=== PATIENT | female | born 1985 | race Caucasian/White ===

== ENCOUNTER 2016-10-03 14:16 | Emergency (ER) | payer SELFPAY ==
[~2016-10-03] VITALS: Ht 154.9 cm; Wt 83.5 kg
[~2016-10-03 14:16] MED LIST: BENZONATATE200 M1 PO; CYCLOBENZAPRINE5 M2 PO; GUAIFENESIN-COD10 ML PO; IBUPROFEN800 M1 PO; LEVAQUIN750 M1 PO; MEDROL4 M2 PO; PERCOCET 5-3251 EACH PO; VENTOLIN HFA18 GM INH
[2016-10-03 14:20] VITALS: BP 111/72
[2016-10-03] MEDS ORDERED: CYCLOBENZAPRINE10 M1 PO (18:44)
[2016-10-03] MEDS ORDERED: MEDROL4 M2 PO (18:44)
[2016-10-03] MEDS ORDERED: PERCOCET 5-3251 EACH PO (18:44)
== END 2016-10-03 14:50 | disposition admitted as inpatient to this hospital (09) ==
LOC: ERH 14:16
DX: M54.5 Low back pain (principal)

== ENCOUNTER 2016-10-03 17:46 | Emergency (ER) | payer OTHER ==
[~2016-10-03] VITALS: Ht 154.9 cm; Wt 83.5 kg
[2016-10-03 17:50] VITALS: BP 138/76
--- NOTE | 2016-10-03 18:26 | ED GENERAL ADULT ---
History of Present Illness General Chief Complaint: Low Back Pain/Injury Stated Complaint: LOW BACK PAIN X 1 DAY Source: patient Exam Limitations: no limitations Vital Signs & Intake/Output Vital Signs & Intake/Output Vital Signs Date Time Temp Pulse Resp B/P Pulse O2 O2 Flow FiO2 Ox Delivery Rate 10/03 1750 97.9 104 16 138/76 97 Room Air Allergies Coded Allergies: No Known Allergies (07/05/16) Reconcile Medications Cyclobenzaprine HCl 10 MG TABLET 1 TAB PO BID PRN PAIN Cyclobenzaprine HCl 5 MG TABLET 1 TAB PO TIDPRN PRN MUSCLE SPASMS Ibuprofen 800 MG TABLET 1 TAB PO TID PRN PAIN AND INFLAMMATION Methylprednisolone. (Medrol) 4 MG TAB.DS.PK 1 DP PO AD SCIATICA 6 on day 1 then reduce by one tablet daily until gone Methylprednisolone. (Medrol) 4 MG TAB.DS.PK 1 DP PO AD BACK PAIN 6 on day 1 then reduce by one tablet daily until gone Oxycodone HCl/Acetaminophen (Percocet 5-325 MG Tablet) 5 MG-325 MG TABLET 1 TAB PO BID PRN PAIN Oxycodone HCl/Acetaminophen (Percocet 5-325 MG Tablet) 5 MG-325 MG TABLET 1 TAB PO BID PRN PAIN Triage Note: PT STATES SHE THROUGH OUT HER BACK PT STATES SHE HAS SCIATIC PAIN "I ALWAYS GET THIS" Triage Nurses Notes Reviewed? yes Onset: Abrupt Duration: hour(s): Timing: recent history : No Patient currently breastfeeds: No HPI: 10/03/16 31-year-old female presents to the emergency department for low back pain. The patient has a history of low back pain and sciatica and has had a similar exacerbations. The onset of the symptoms were abrupt, the duration was just today, the severity was significant as her symptoms required her to come to the emergency department for care. She says that she woke up with extreme left sided low back pain. She said she took ibuprofen with minimal relief. There is no fever. There is no lower extremity weakness. There is no bowel or bladder dysfunction. She denies any possibility of . Past History Travel History Traveled to [place] past 21 day No Medical History Any Pertinent Medical History? see below for history Neurological: NONE EENT: NONE Cardiovascular: NONE Respiratory: NONE Gastrointestinal: NONE Hepatic: NONE Renal: NONE Musculoskeletal: sciatica Psychiatric: NONE Endocrine: NONE Blood Disorders: NONE Cancer(s): NONE ADDICTION PSYCHIATRIST/Reproductive: NONE Surgical History Surgical History: SPLENECTOMY Psychosocial History What is your primary language Greenlandic Tobacco Use: Current Daily Use Daily Tobacco Use Amount/Type: => 5 Cigarettes daily ETOH Use: denies use Illicit Drug Use: denies illicit drug use Family History Hx Contributory? No Review of Systems Review of Systems Constitutional: Denies: fever. EENTM: Denies: visual changes. Respiratory: Denies: short of breath. Cardiovascular: Denies: chest pain. GI: Denies: abdominal pain. Genitourinary: Denies: dysuria. Musculoskeletal: Reports: back pain. Skin: Denies: rash. Neurological/Psychological: Denies: headache. Hematologic/Endocrine: Denies: bruising, bleeding. Physical Exam Physical Exam General Appearance: well developed/nourished, alert, awake, anxious, mild distress Head: atraumatic, normal appearance Eyes: Bilateral: normal appearance, PERRL, EOMI. Ears, Nose, Throat: normal pharynx, normal ENT inspection Neck: normal inspection, supple, full range of motion Respiratory: normal breath sounds, chest non-tender, no respiratory distress Cardiovascular: regular rate/rhythm Peripheral Pulses: 4+ radial (R), 4+ radial (L) Gastrointestinal: soft, non-tender Back: vertebral tenderness Extremities: limited range of motion Neurologic/Psych: no motor/sensory deficits, awake, alert, oriented x 3 Skin: intact, normal color, warm/dry Comments: 10/03/16 The patient has decreased range of motion to the left hip. She has pain with left leg extension. There is no lower extremity weakness. Core Measures ACS in differential dx? No CVA/TIA Diagnosis: No Severe Sepsis Present: No Septic Shock Present: No Progress Differential Diagnoses I considered the following diagnoses in my evaluation of the patient: [, Disc herniation, lumbar strain, epidural abscess] Plan of Care: Current Medications Sig/Yenny Start time Last Medication Dose Stop Time Status Admin Cyclobenzaprine HCl 10 MG ONCE ONE 10/03 1844 UNVr (Flexeril 10MG Tab) 10/03 1845 Ketorolac 60 MG ONCE ONE 10/03 1844 UNVr Tromethamine 10/03 1845 (Toradol) Initial ED EKG: none Departure Departure Disposition: HOME OR SELF CARE Condition: Stable Clinical Impression Primary Impression: Sciatica Referrals: PATIENT HAS NO PRIMARY CARE DR (PCP/Family) Departure Forms: Customer Survey General Discharge Information Prescriptions: Current Visit Scripts Oxycodone HCl/Acetaminophen (Percocet 5-325 MG Tablet) 1 TAB PO BID PRN PAIN #10 TAB Cyclobenzaprine HCl 1 TAB PO BID PRN PAIN #20 TAB Methylprednisolone. (Medrol) 1 DP PO AD #1 DP 6 on day 1 then reduce by one tablet daily until gone Critical Care Note Critical Care Note Critical Care Time: non-applicable
[2016-10-03] MEDS ORDERED: PERCOCET 5-3251 EACH PO (18:44)
[2016-10-03] MEDS ORDERED: MEDROL4 M2 PO (18:44)
[2016-10-03] MEDS ORDERED: CYCLOBENZAPRINE10 M1 PO (18:44)
== END 2016-10-03 19:28 ==
LOC: ERH 17:46
DX: M54.42 Lumbago with sciatica, left side (principal)
CPT/HCPCS: 96372; J1885

== ENCOUNTER 2017-01-06 22:28 | Emergency (ER) | payer OTHER ==
[~2017-01-06] VITALS: Ht 154.9 cm; Wt 89.8 kg
[~2017-01-06 22:28] MED LIST changes: +CYCLOBENZAPRINE10 M1 PO
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
[2017-01-07] VITALS: BP 127/80
[2017-01-07] MEDS ORDERED: PERCOCET 5-3251 EACH PO (00:08)
[2017-01-07] MEDS ORDERED: IBUPROFEN800 M1 PO (00:09)
== END 2017-01-07 01:09 ==
LOC: ERH 22:28
DX: M54.5 Low back pain (principal)
CPT/HCPCS: 96372; J1885; J3360